=== PATIENT | male | born 1965 | race Caucasian/White ===

== ENCOUNTER → 2017-08-23 10:07 | Outpatient (CLI) | payer BC, SELFPAY ==
--- NOTE | 2017-08-23 | CA_ITS ---
PROCEDURE: 2-D M-mode and color Doppler study INDICATIONS FOR THE TEST: Chest pain COPD Heart Murmur Tobacco Smoking Palpitations Fatigue SyncopeX Edema HypertensionXDiabetes Mellitus Rheumatic Fever SOB NAYLOR Obesity HyperlipidemiaX Family History HDX Additional History CAD,RECENT STENT PATIENT INFORMATION HEIGHT: 69 WEIGHT:176 GENDER: Male B/P:117/73 2-D/M-MODE INTERPRETATION: 2-D MEASUREMENTS OBSERVED VALUES IN CMS Right Ventricular Dimension (RVDd) 2.5 Interventricular Septum (Thickness)(IVsd) .9 Left Ventricular Internal Dimensions(LVIDd) 5.1 Left Ventricular Posterior Wall (Thickness)(LVPWd) 1.0 Aortic Root 3.1 Aortic Cusp Separation 1.6 Left Atrial Dimensions (LAD) 3.0 2D 1. Left atrium is normal size, left ventricle is normal size, there is no concentric left ventricular hypertrophy, visually estimated ejection fraction 55% with no obvious regional wall motion abnormality. 2. The right atrium and right ventricle are relatively normal size and function. 3. The aortic valve is minimally thickened and fibrosed. 4. The mitral and tricuspid valve leaflets are minimally thickened. 5. The pulmonic valve is poorly visualized. 6. No significant pericardial effusion noted. DOPPLER INTERROGATION: Doppler interrogation of the aortic, mitral and tricuspid valvular presence of trace aortic, mild mitral and tricuspid regurgitation, tricuspid regurgitant jet velocity is insufficient for calculation of the right ventricular systolic pressure. Diastolic parameters are inconclusive. CONCLUSION: 1. Normal left ventricular size, preserved left ventricular systolic function, visually estimated ejection fraction 55% with no obvious regional wall motion abnormality. Diastolic parameters are inconclusive. 2. Trace aortic, mild mitral and tricuspid regurgitation 3. No significant pericardial effusion noted.
--- NOTE | 2017-08-23 | CI_ITS ---
Cerebrovascular Exam Indications: 780.4 Dizziness and giddiness. Near syncopal episode. IMPRESSIONS 1. The bilateral vertebral arteries are patent with normal antegrade flow. 2. Incidental Finding:Mixed hypo and hyper echoicdensity seen on left side just proximal to the common carotid artery consistent with thyroid nodule. Multiple images obtained. Suggest dedicated thyroid ultrasound. 3. Study suggests less than 20% stenosis involving the right internal carotid artery and the left internal carotid artery. History: Risk factors: Hypertension. Hyperlipidemia. Carotid duplex study. Complete study and Doppler flow study including spectral analysis, color and dodson scale imaging. Location: Vascular laboratory. Patient status: Outpatient. Tables: Arterial flow: + +--------+--------+ Location V sys V ed + +--------+--------+ Right CCA - proximal 113cm/s 35.4cm/s + +--------+--------+ Right CCA - distal 102cm/s 29.9cm/s + +--------+--------+ Right ECA 86.1cm/s -------- + +--------+--------+ Right ICA - proximal 62.9cm/s 23.9cm/s + +--------+--------+ Right ICA - mid 86.1cm/s 40.9cm/s + +--------+--------+ Right ICA - distal 79.2cm/s 37.1cm/s + +--------+--------+ Right vertebral 45.3cm/s -------- + +--------+--------+ Left CCA - proximal 89.9cm/s 32cm/s + +--------+--------+ Left CCA - distal 86.7cm/s 27cm/s + +--------+--------+ Left ECA 92.4cm/s -------- + +--------+--------+ Left ICA - proximal 72.3cm/s 33.3cm/s + +--------+--------+ Left ICA - mid 89.3cm/s 40.9cm/s + +--------+--------+ Left ICA - distal 86.7cm/s 38.3cm/s + +--------+--------+ Left vertebral 42.7cm/s -------- + +--------+--------+ Velocity ratios: + + + + + + Right, V sys Right, V ed Left, V sys Left, V ed + + + + + + Max ICA/dist CCA 0.84 1.37 1.03 1.51 + + + + + + (Report amended ) Electronically signed by: Adis Moulton [id number]
--- NOTE | 2017-08-23 10:15 | MR_ITS ---
MR head/brain wo/w con HISTORY: Visual field defect, near syncope ITS.REASON: NEAR SYNCOPE,HEMIANOPSIA ORDERING PHYSICIAN: Riana Alvarez MD PATIENT AGE: 51 years COMPARISON: None TECHNIQUE: Standard multiplanar multiecho sequences are performed without and with gadolinium enhancement. FINDINGS: No midline shift or mass effect. No evidence of acute infarction. No hydrocephalus. The cerebellopontine angles, cerebellum and brainstem are unremarkable. No obvious pituitary mass or compression changes upon the optic chiasm. No large aneurysms are evident. Small aneurysms may not be seen with this technique and may be better evaluated with MRA if clinically warranted There is normal dodson-white matter differentiation with no significant white matter disease apparent. No mastoid effusion or sinus air-fluid level. IMPRESSION: Negative MRI of the brain without and with contrast.
== END ==
PROVIDERS: PCP Family Medicine; Visit Provider Family Medicine
DX: R55 Syncope and collapse (principal); H53.47 Heteronymous bilateral field defects
CPT/HCPCS: 70553; 93306; 93880; A9576

== ENCOUNTER → 2017-08-23 13:23 | Outpatient (POV) | payer BC, SELFPAY | PROVIDERS: PCP Family Medicine; Visit Provider Family Medicine | DX: Z00.00 Encounter for general adult medical examination without abnormal findings (principal) ==

== ENCOUNTER → 2017-09-04 15:20 | Outpatient (CLI) | payer BC, SELFPAY ==
--- NOTE | 2017-09-04 15:22 | US_ITS ---
US thyroid HISTORY: ITS.REASON: THYROID NODULE ORDERING PHYSICIAN: Riana Alvarez MD PATIENT AGE: 51 years COMPARISON: None FINDINGS: Right lobe: The right lobe measures 4.4 x 1.7 x 1.9 cm. There is homogeneous echogenicity. No nodule apparent Left lobe: The left lobe measures 3.4 x 1.1 x 1.6 cm. There is a small cyst in the upper pole at 4 mm. No other lesions evident Isthmus: Unremarkable Nodular areas of heterogeneous echogenicity are present in the left neck on are suspicious for enlarged lymph nodes measuring up to 3.6 x 1.7 cm. A chain of enlarged nodes are present in the left neck. There is some increase vascularity of the lymph nodes. No obvious abscess or internal necrosis. IMPRESSION: 1. Extensive left cervical adenopathy. Consider neck and chest CT with contrast for further evaluation to determine the extent of adenopathy and evaluate for possible pulmonary lesion. 2. Small left thyroid cyst and mildly enlarged right lobe of the thyroid gland otherwise negative thyroid ultrasound
== END ==
PROVIDERS: PCP Family Medicine; Visit Provider Family Medicine
DX: E04.1 Nontoxic single thyroid nodule (principal)
CPT/HCPCS: 76536

== ENCOUNTER → 2017-09-19 08:43 | Outpatient (CLI) | payer BC, SELFPAY ==
--- NOTE | 2017-09-19 09:07 | CT_ITS ---
CT sinus wo con CLINICAL INDICATION: ITS.REASON: LYMPHADENOPATHY ORDERING PHYSICIAN: Riana Alvarez MD PATIENT AGE: 51 years COMPARISON: None TECHNIQUE:Axial, sagittal, and coronal images are generated and reviewed without contrast. All CT scans at the facility use one or more dose reduction, viz: automated exposure control; ma/kV adjustment per patient size (including targeted exams where dose is matched to indication; i.e. head); or iterative reconstruction technique. COMPARISON: None FINDINGS: Bones: Unremarkable. No fracture, lytic, or blastic changes evident Extracranial soft tissues: Unremarkable Sinuses: Mild to moderate mucosal thickening involves the frontal ethmoid region. No sinus air-fluid level. There is a 14 mm retention cyst in the floor of the left maxillary sinus. Orbits: Unremarkable Other: No other pertinent findings IMPRESSION: Mild sinus disease in the frontoethmoid region and left maxillary sinus
--- NOTE | 2017-09-19 09:07 | CT_ITS ---
CT chest wo/w con HISTORY: ITS.REASON: LYMPHADENOPATHY ORDERING PHYSICIAN: Riana Alvarez MD PATIENT AGE: 51 years Technique: Axial images obtained without and with contrast. Sagittal and coronal reformatted images are also generated and reviewed. All CT scans at the facility use one or more dose reduction, viz: automated exposure control; ma/kV adjustment per patient size (including targeted exams where dose is matched to indication; i.e. head); or iterative reconstruction technique. CONTRAST: 50 ml Isovue 370 I.V. COMPARISON: None FINDINGS: Left supraclavicular adenopathy is noted past demonstrated in the neck CT. Adenopathy is present in the left paratracheal region superiorly measuring 2.5 x 2 cm extending cephalad to caudad for a length of 5 cm. Trachea is slightly deviated toward the right. No axillary adenopathy. No hilar adenopathy. There are coronary artery calcifications present. Calcified granuloma is present in the left upper lobe. A 4 mm noncalcified nodule present in the left major fissure superiorly benign-appearing probably due to small lymph node Is of the upper abdomen are unremarkable. IMPRESSION: Left supraclavicular and left paratracheal adenopathy. Lymphoma is a consideration. Fine-needle aspiration could be performed under sonographic guidance of the left clavicular adenopathy is clinically desired Coronary artery calcifications consistent coronary artery disease
--- NOTE | 2017-09-19 09:07 | CT_ITS ---
CT soft tissue neck w con CLINICAL INDICATION: Cervical adenopathy ITS.REASON: LYMPHADENOPATHY ORDERING PHYSICIAN: Riana Alvarez MD PATIENT AGE: 51 years COMPARISON: None TECHNIQUE:Axial, sagittal, and coronal images are generated and reviewed with 50 mL's of Isovue-[address] scans at the facility use one or more dose reduction, viz: automated exposure control; ma/kV adjustment per patient size (including targeted exams where dose is matched to indication; i.e. head); or iterative reconstruction technique. FINDINGS: There is adenopathy in the left supraclavicular region and posterior to the sternocleidomastoid inferiorly. The tammi mass in the left supraclavicular region and inferior neck measures 6 x 3 x 3 cm and is causing some compression on the left internal jugular vein. There are some small nodes present more superior to this region as well. There are a few scattered small nodes on the right. IMPRESSION: Left supraclavicular adenopathy as described above
== END ==
PROVIDERS: PCP Family Medicine; Visit Provider Family Medicine
DX: R59.0 Localized enlarged lymph nodes (principal)
CPT/HCPCS: 70486; 70491; 71270; Q9967

== ENCOUNTER → 2017-09-25 17:57 | Outpatient (CLI) | payer BC, SELFPAY ==
[2017-09-25 18:37] LABS: Basophils # 0.1 K/mm3 (0-0.2); Basophils % 0.8 % (0.1-2.0); Eosinophils # 0.6 K/mm3 (0.0-0.4); Eosinophils % 8.8 % (0.1-12.0); Hematocrit 48.3 % (42.0-52.0); Hemoglobin 16.6 g/dL (14.1-18.0); Lymphocytes # 1.7 K/mm3 (0.7-4.5); Lymphocytes % 23.3 K/mm3 (10-50); Mean Corpuscular HGB Conc 34.4 g/dL (31.8-35.4); Mean Corpuscular Hemoglobin 32.2 pg (27.0-31.2); Mean Corpuscular Volume 93.5 fl (80-94); Mean Platelet Volume 7.7 fl (7.4-10.4); Monocytes # 0.4 K/mm3 (0.1-1.0); Monocytes % 5.9 % (1.7-9.3); Neutrophils # 4.5 K/mm3 (1.8-7.8); Neutrophils % 61.3 % (37.0-80.0); Platelet Count 245 K/mm3 (142-424); Red Blood Count 5.17 M/mm3 (4.60-6.20); Red Cell Distribution Width 12.2 % (11.5-17.5); White Blood Count 7.3 K/mm3 (4.8-10.8)
[2017-09-25 19:40] LABS: Alanine Aminotransferase 54 U/L (12-78); Albumin Level 4.2 gm/dL (3.4-5.0); Albumin/Globulin Ratio 1.1 (1.1-1.8); Alkaline Phosphatase 89 U/L (46-116); Anion Gap 11.3 mEq/L (5-15); Aspartate Amino Transferase 36 U/L (15-37); Bilirubin,Total 2.6 mg/dL (0.2-1.0); Blood Urea Nitrogen 14 mg/dL (7-18); Calcium 9.5 mg/dL (8.5-10.1); Carbon Dioxide 30 mmol/L (21.0-32.0); Chloride 105 mmol/L (98-107); Creatinine,Serum 0.82 mg/dL (0.70-1.30); Estimated Glomerular Filt Rate 98 ml/min (>60); GFR (African American) 119 ML/MIN (>60); Globulin 3.7 gm/dl (1.3-3.2); Glucose 97 mg/dL (74-106); Potassium 4.3 mmoL/L (3.5-5.1); Sodium 142 mmol/L (136-145); Thyroid Stimulating Hormone 3.42 uIU/ml (0.358-3.740); Total Protein,Serum 7.9 gm/dL (6.4-8.2)
== END ==
PROVIDERS: PCP Family Medicine; Visit Provider Family Medicine
DX: R59.0 Localized enlarged lymph nodes (principal)
CPT/HCPCS: 36415; 80053; 84443; 85025

== ENCOUNTER → 2017-10-04 09:35 | Outpatient (CLI) | payer BC, SELFPAY ==
--- NOTE | 2017-10-04 09:50 | US_ITS ---
FNA w guidance, US soft tissue head and neck HISTORY: Left supraclavicular adenopathy ITS.REASON: LYMPHADENOPATHY ORDERING PHYSICIAN: Riana Alvarez MD PATIENT AGE: 51 years COMPARISON is made to previous CT scan of 09/19/2017 and ultrasound of 09/04/2017. Prebiopsy ultrasound: Persistent isoechoic masses are present in the supraclavicular region on the left as previously described consistent with adenopathy. The most accessible was tolerated for FNA. TECHNIQUE: Following obtaining informed consent, using aseptic technique and local anesthesia with buffered lidocaine, fine-needle aspiration was performed of the nodule of interest using sonographic guidance. One pass was made into the nodule with a 25-gauge needle followed by 2 passes with a 21-gauge needle. Specimen was put in RPMI on the third pass. Specimen was given to cytology. The patient tolerated the procedure well without evidence of immediate complications and left the ultrasound suite in stable condition. CYTOLOGY:Malignant, consistent with follicular lymphoma IMPRESSION: Successful sonographic guided FNA of the left supraclavicular lymph nodes. Cytology shows malignant cells consistent with follicular lymphoma
== END ==
PROVIDERS: PCP Family Medicine; Visit Provider Family Medicine
DX: R59.0 Localized enlarged lymph nodes (principal)
CPT/HCPCS: 10022; 76536

== ENCOUNTER → 2018-01-25 16:54 | Outpatient (CLI) | payer BC, SELFPAY ==
--- NOTE | 2018-01-25 | XR_ITS ---
XR chest 2V HISTORY: ITS.REASON: CHEST WALL PAIN ORDERING PHYSICIAN: JACOBY Orr PATIENT AGE: 52 years COMPARISON: FINDINGS: The cardiomediastinal silhouette and pulmonary vascularity are within normal limits. The lungs are clear without infiltrates, suspicious nodules, or pleural effusions. No acute bony abnormalities. IMPRESSION: Negative chest, no acute finding
== END ==
PROVIDERS: PCP Family Medicine; Visit Provider Physician Assistant
DX: R07.89 Other chest pain (principal)
CPT/HCPCS: 71046

== ENCOUNTER → 2018-01-31 06:11 | Outpatient (CLI) | payer BC, SELFPAY ==
--- NOTE | 2018-01-31 06:13 | NM_ITS ---
History and Indications: History of angioplasty stenting, hypertension, family history. Procedure: Patient exercised on Osmani protocol 9 minutes and 30 seconds, resting heart rate was 50 bpm resting blood pressure 139/88, with exercise maximum heart rate achieved was 1 46 bpm which is greater than 85% of the maximum predicted heart rate and a blood pressure was 174/92. Test was stopped due to shortness of breath patient denied any complained of chest pain, patient has a good exercise capacity achieved 12.8 metastases of workload on treadmill, the blood pressure response to exercise was adequate. Electrocardiogram: Resting electrocardiogram showed sinus bradycardia, with exercise there is [address] segment depression noted from the baseline EKG. The EKG portion of the exercise Myoview is positive for ischemia. Cardiac stress and resting SPECT images: Cardiac stress and rest SPECT images were obtained using technetium 99 Myoview 31.8 mCi at stress gated 10.1 mCi at rest. Gated SPECT further analysis of segmental wall motion and calculation of the ejection fraction also done. Cardiac stress and resting SPECT images show uniform myocardial activity without any segmental perfusion abnormality, computer derived ejection fraction is 60% with no obvious regional wall motion abnormality, right ventricle is normal size and contractility. Conclusion: 1. The EKG portion of the exercise Myoview is positive for ischemia, patient has good exercise capacity achieved 12.8mets of workload on treadmill, the blood pressure response to exercise was adequate, there was no exercise-induced chest discomfort. 2. No obvious scintigraphic evidence of reversible ischemia seen at this level of exercise, computer derived ejection fraction is percent with no obvious regional wall motion abnormality, right ventricle is normal size and contractility.
--- NOTE | 2018-01-31 07:19 | HMH.ITSHM ---
ZIAC EFFIENT ATORVASTATIN ASA COQ10 FLUTICASONE MENS ONE A DAY OMEGA 3 CEFDINIR STEROID PACK
== END ==
PROVIDERS: PCP Family Medicine; Visit Provider Internal Medicine
DX: I25.10 Atherosclerotic heart disease of native coronary artery without angina pectoris (principal)
CPT/HCPCS: 78452; 93017; A9502

== ENCOUNTER → 2018-03-20 07:56 | Outpatient (CLI) | payer BC, SELFPAY ==
--- NOTE | 2018-03-20 08:30 | US_ITS ---
US abdomen limited History:Elevated bilirubin, elevated LFTs Ordering Physician:Riana Alvarez MD Patient Age: 52 years Comparison:None Findings: Pancreas:Unremarkable. No obvious mass or abnormal fluid collection. No ductal dilatation Liver:No focal liver lesions demonstrated. Homogeneous echogenicity. No intrahepatic biliary ductal dilatation evident. There is appropriate directional blood flow within a nondilated portal vein Right Kidney:Unremarkable. Normal size and echogenicity. No hydronephrosis Gallbladder:No gallstones, gallbladder wall thickening, pericholecystic fluid, or biliary dilatation. Impression:Negative gallbladder/right upper quadrant ultrasound
== END ==
PROVIDERS: PCP Family Medicine; Visit Provider Family Medicine
DX: E80.6 Other disorders of bilirubin metabolism (principal)
CPT/HCPCS: 76705

== ENCOUNTER → 2018-09-10 09:39 | Outpatient (CLI) | payer BC, SELFPAY ==
--- NOTE | 2018-09-10 09:44 | CI_ITS ---
Cerebrovascular Exam Indications: 785.9 Bruit. Hx of radiation to Left neck, lymphoma IMPRESSIONS 1. The bilateral vertebral arteries are patent with normal antegrade flow. 2. Study suggests less than 20% stenosis involving the right internal carotid artery and the left internal carotid artery. Carotid duplex study. Complete study and Doppler flow study including spectral analysis, color and dodson scale imaging. Height: Height: 175.3cm. Height: 69in. Weight: Weight: 77.1kg. Weight: 169.6lb. Body mass index: BMI: 25.1kg/m^2. Body surface area: BSA: 1.95m^2. Location: Vascular laboratory. Patient status: Outpatient. Tables: Arterial flow: + +--------+--------+ Location V sys V ed + +--------+--------+ Right CCA - proximal 101cm/s 30.6cm/s + +--------+--------+ Right CCA - distal 76.2cm/s 29.9cm/s + +--------+--------+ Right ECA 76cm/s -------- + +--------+--------+ Right ICA - proximal 53.7cm/s 29.2cm/s + +--------+--------+ Right ICA - mid 83.5cm/s 42.2cm/s + +--------+--------+ Right ICA - distal 79.6cm/s 44.2cm/s + +--------+--------+ Right vertebral 36.2cm/s -------- + +--------+--------+ Left CCA - proximal 95.4cm/s 33.6cm/s + +--------+--------+ Left CCA - distal 69.5cm/s 30.3cm/s + +--------+--------+ Left ECA 80cm/s -------- + +--------+--------+ Left ICA - proximal 57cm/s 26.7cm/s + +--------+--------+ Left ICA - mid 77cm/s 40.9cm/s + +--------+--------+ Left ICA - distal 71.5cm/s 37.3cm/s + +--------+--------+ Left vertebral 38.6cm/s -------- + +--------+--------+ Velocity ratios: + + + + + + Right, V sys Right, V ed Left, V sys Left, V ed + + + + + + Max ICA/dist CCA 1.1 1.48 1.11 1.35 + + + + + + (Report amended ) Electronically signed by: Darwin Jolly [id number]
[2018-09-10 11:35] LABS: Alanine Aminotransferase 50 U/L (12-78); Albumin Level 3.8 gm/dL (3.4-5.0); Alkaline Phosphatase 76 U/L (46-116); Aspartate Amino Transferase 31 U/L (15-37); Bilirubin,Direct 0.2 mg/dL (0.0-0.2); Bilirubin,Indirect 2.2 mg/dL (0.0-0.9); Bilirubin,Total 2.4 mg/dL (0.2-1.0); Chol/HDL Ratio 2.5 (1-3.5); Cholesterol 87 mg/dL (140-200); HDL Cholesterol 35 mg/dL (27-67); LDL Cholesterol 40 mg/dL (0-130); Triglycerides 59 mg/dL (30-200); VLDL Cholesterol 12 mg/dL (0-40)
== END ==
PROVIDERS: Nurse Practitioner Family; Visit Provider Internal Medicine
DX: I65.23 Occlusion and stenosis of bilateral carotid arteries (principal); C85.90 Non-Hodgkin lymphoma, unspecified, unspecified site; E78.49 Other hyperlipidemia; E80.4 Gilbert syndrome; I10 Essential (primary) hypertension; I25.10 Atherosclerotic heart disease of native coronary artery without angina pectoris; W57.XXXA Bitten or stung by nonvenomous insect and other nonvenomous arthropods, initial encounter; Z92.3 Personal history of irradiation
CPT/HCPCS: 36415; 80061; 80076; 86618; 93880

== ENCOUNTER → 2019-10-17 09:34 | Outpatient (CLI) | payer BC, SELFPAY ==
--- NOTE | 2019-10-17 09:34 | CA_ITS ---
APPROVED REPORT Composing Machine Operator: Mimi Gannon Sylvie Laterality: Bilateral Study Quality: Excellent Indications: Carotid stenosis Risk Factors Hypertension: Hx of lymphoma with radiation to left neck Doppler Spectral Velocity Analysis ECA (R) 78.70/15.30 cm/s ECA (L) 77.70/17.00 cm/s dICA (R) 76.50/37.10 cm/s dICA (L) 70.00/33.90 cm/s Alicia (R) 72.10/32.20 cm/s Alicia (L) 57.90/29.40 cm/s pICA (R) 68.40/31.20 cm/s pICA (L) 51.80/27.20 cm/s dCCA (R) 71.90/25.70 cm/s dCCA (L) 52.70/17.70 cm/s pCCA (R) 85.40/27.00 cm/s pCCA (L) 73.60/23.20 cm/s Vert (R) 28.40/8.40 cm/s Vert (L) 27.70/10.70 cm/s ICA/CCA 1.06 ICA/CCA 1.33 Conclusion Study suggests less than 20% stenosis of the bilateral internal cartoid arteries, unchanged from the 09/10/18 study. Antegrade flow seen bilateral vertebral arteries. Electronically signed by : Adis Moulton MD 10/17/2019 17:36:15
== END ==
PROVIDERS: PCP Family Medicine; Visit Provider Urology
DX: I65.23 Occlusion and stenosis of bilateral carotid arteries (principal); E78.2 Mixed hyperlipidemia; I10 Essential (primary) hypertension; I25.10 Atherosclerotic heart disease of native coronary artery without angina pectoris
CPT/HCPCS: 93880

== ENCOUNTER 2024-08-08 07:57 | Day surgery (SDC) | payer BC, SELFPAY ==
[2024-08-08 08:14] VITALS: BMI 25.2
[2024-08-08] MEDS: LACTATED RINGERS 1000ML 1,000 ML 50 ML IV (08:16)
[2024-08-08 08:28] VITALS: BP 136/77; PULSE 55; RESP 18; TEMP 36.3; O2SAT 100
--- NOTE | 2024-08-08 09:00 | P.HP_ITS ---
History of Present Illness *Admission Date: 08/08/24 *Reason for visit:: Screening for colon cancer *History of present illness: Mr. Santiago is a 58-year-old gentleman who is here for screening colonoscopy. His last colonoscopy was more than 10 years ago. The examination is deemed medicall y necessary for screening colonoscopy. The patient has been seen, interviewed and examined prior to the procedure by both myself and the anesthesia provider. [facility] Disclaimer: The information contained in this section may have been updated after the patient was seen, as this information can be updated by other users. Medical History (Updated 08/08/24 @ 09:10 by Durga Kelsey II, MD) Lymphoma Carotid artery stenosis Hypertensive disorder Hyperlipidemia Coronary arteriosclerosis Surgical History (Updated 08/08/24 @ 08:26 by Yinka Damian RN) History of thumb surgery History of coronary artery stent placement Family History (Updated 08/08/24 @ 08:27 by Yinka Damian RN) Other Family history of heart disease Family history of hypertension Social History (Updated 08/08/24 @ 08:28 by Yinka Damian RN) Smoking Status: Never smoker alcohol intake: never counseling provided: none substance use type: denies use current occupational status: employed Travel in the last 8 weeks: Inside the [place] household members: spouse housing: condominium Have you lived/traveled outside [place] in past 30 days?: No Contact w/someone who lives/traveled outside US past 30 days?: No Exposure to someone with infectious disease in past 14 days?: No Do you have a fever (greater than 100.4 F or 38 C)?: No Have you tested positive for COVID-19: Yes Exposed to someone with COVID-19 in past 14 days?: No Do you have a sore throat?: No Do you have a cough?: No Do you have any weakness?: No Are you experiencing any nausea/vomitting?: No Do you have any diarrhea?: No Are you experiencing any unusual bleeding?: No Do you have any muscle aches/pain?: No Do you have any abdominal pain?: No Are you experiencing loss of taste or smell?: No Other Medical History Have you received the Flu Vaccine for this season: Yes Have you received the Pneumonia Vaccine: No Review of Systems Review of Systems Review of systems (narrative): Negative *Cardiovascular Comments: Negative *Gastrointestinal Comments: Negative *Genitourinary Comments: Negative *Musculoskeletal Comments: Negative *Neurologic Comments: Negative Meds Home Medications and Allergies Home Medications ?Medication ?Instructions ?Recorded ?Confirmed ?Type aspirin 81 mg tablet,delayed 81 mg PO QDAY heart health 06/16/17 08/08/24 History release (Adult Low Dose Aspirin) coenzyme Q10 100 mg capsule (Co 100 mg PO QDAY Supplement 06/16/17 08/08/24 History Q-10) multivitamin 1 tab PO QDAY Supplement 06/16/17 08/08/24 History omega-3 fatty acids 1,000 mg 1,000 mg PO TID Supplement 06/16/17 08/08/24 History capsule cetirizine 10 mg tablet (Zyrtec) 10 mg PO DAILY 02/18/19 08/08/24 History atorvastatin 40 mg tablet 40 mg PO QDAY HLD #30 tabs 10/21/19 08/08/24 Rx bisoprolol 2.5 See Rx Instructions .Route 05/09/22 08/08/24 Rx mg-hydrochlorothiazide 6.25 mg .COMPLEX #90 tabs tablet New Prescriptions to Start Prescriptions: Allergies Allergy/AdvReac Type Severity Reaction Status Date / Time pantoprazole Allergy Mild Other Verified 08/08/24 08:21 Exam Data for Last 24 hours Vital signs and Labs for Last 24 Hours: Temp Pulse Resp BP Pulse Ox O2 Del Method 97.3 F L 55 L 18 136/77 100 Room Air 08/08/24 08:28 08/08/24 08:28 08/08/24 08:28 08/08/24 08:28 08/08/24 08:28 08/08/24 08:28 I & O for Last 24 hours: Intake & Output 08/05/24 08/06/24 08/07/24 08/08/24 23:59 23:59 23:59 23:59 Weight 171 lb *Routine HEENT Exam Head: Present normocephalic Eye: Present EOMI and PERRL ENT: Present mucous membranes moist *Routine Neck Exam Neck: Present supple *Routine Respiratory Exam Respiratory: Present CTA bilaterally *Routine Cardiovascular Exam Cardiovascular: Present RRR *Routine Abdominal Exam Abdominal: Present soft and normoactive bowel sounds; Absent tenderness *Routine Rectal Exam Rectal:: deferred *Routine Genitalia Exam Genitalia:: deferred *Routine Extremities Exam Extremities: Absent cyanosis, clubbing or edema *Routine Skin Exam Skin: Present warm; Absent rash *Routine Neurological Exam Neurological: Present alert and oriented X3 Assessment and Plan *Assessment and plan (1) Screening for colon cancer: Status: Acute Category: Medical Code(s): Z12.11 - Encounter for screening for malignant neoplasm of colon Plan A/P: 1. Screening for colon cancer is the preprocedural diagnosis. The patient will be anesthetized/sedated using MAC sedation. The patient has been seen and examined. Cardiac and lung assessment prior to the examination is stable. Proceed with planned screening colonoscopy
--- NOTE | 2024-08-08 09:00 | EXP.ANES.CKL ---
[facility] Disclaimer: The information contained in this section may have been updated after the patient was seen, as this information can be updated by other users. Medical History (Updated 08/08/24 @ 08:25 by Yinka Damian RN) Lymphoma Carotid artery stenosis Hypertensive disorder Hyperlipidemia Coronary arteriosclerosis Surgical History (Updated 08/08/24 @ 08:26 by Yinka Damian RN) History of thumb surgery History of coronary artery stent placement Family History (Updated 08/08/24 @ 08:27 by Yinka Damian RN) Other Family history of heart disease Family history of hypertension Social History (Updated 08/08/24 @ 08:28 by Yinka Damian RN) Smoking Status: Never smoker alcohol intake: never counseling provided: none substance use type: denies use current occupational status: employed Travel in the last 8 weeks: Inside the [place] household members: [facility] Have you lived/traveled outside US in past 30 days?: No Contact w/someone who lives/traveled outside [place] past 30 days?: No Exposure to someone with infectious disease in past 14 days?: No Do you have a fever (greater than 100.4 F or 38 C)?: No Have you tested positive for COVID-19: Yes Exposed to someone with COVID-19 in past 14 days?: No Do you have a sore throat?: No Do you have a cough?: No Do you have any weakness?: No Are you experiencing any nausea/vomitting?: No Do you have any diarrhea?: No Are you experiencing any unusual bleeding?: No Do you have any muscle aches/pain?: No Do you have any abdominal pain?: No Are you experiencing loss of taste or smell?: No [facility] Anesthesia Checklist Patient Identification Patient Identification: Verbal (Name & ) Structural Data Admitted From: Home Planned Operative Procedure/s: colonoscopy Consent for Planned Operative Procedure(s) Verified: Yes NPO Status Verified Time NPO: 00:00 Airway Assessment Mallampati Score:: Class II C-Spine Mobility Assessed: Yes TMJ Mobility Assessed: Yes Dentition: Good Dentition Neurological Assessment Level of Consciousness: Awake, Alert and Appropriate Anesthesia Plan Anesthesia Risk discussed: Yes Anesthesia Plan: Verified ASA Class: III Anesthesia Type: MAC
[2024-08-08 09:02] VITALS: O2SAT 100
--- NOTE | 2024-08-08 09:10 | [facility].PROCNOTE ---
[facility] Procedure Note Date: 08/08/24 Time: 09: Procedure Note:: Colonoscopy Procedure Report: Colonoscopy with cold snare polypectomy Endoscopist: Durga Kelsey II, MD Referring physician: Sandoval Alvarez MD Date of Procedure: August 08, 2024 Equipment: Olympus 190 variable stiffness pediatric colonoscope Sedation: MAC sedation Indication: Mr. Santiago is a 58-year-old gentleman who is here for screening colonoscopy. His last colonoscopy was in his 40s (with me). He reports no abdominal pain, weight loss, change in his bowel habits or rectal bleeding. He reports no family history of colon cancer. Procedure: Prior to the procedure, a history and physical exam was performed, and patient's medications and allergies were reviewed. The risks, benefits and alternatives of the sedation and procedure were discussed with the patient. All questions were answered and informed consent was obtained. The patient was brought to the procedure room. Patient identification and proposed procedure were verified by the physician and the nurse. The patient was placed in a left lateral decubitus position and the scope was passed under direct vision. Throughout the procedure, the patient's blood pressure, pulse, and oxygen saturations were monitored continuously. The colonoscopy was accomplished without difficulty. The patient tolerated the procedure well. Findings: On digital rectal examination there was normal rectal tone. There were no external hemorrhoids. The prostate was 2+, smooth, soft, symmetric without nodules. The colonoscope was introduced through the anal canal to the rectum and advanced to the cecum. The ileocecal valve and appendiceal orifice were identified. The scope was advanced a short distance into the ileum which appeared grossly normal. The scope was then withdrawn into the colon. There were 4 diminutive polyps (cecum x 2 (2 and 4 mm), ascending x 1 (3 mm) and sigmoid x 1 (3 mm)). These were all removed via cold snare polypectomy. The remaining cecum, ascending and transverse colon and mucosa were grossly normal. There were a few mildly scattered diverticuli throughout within the sigmoid colon (LEFT colon). The rectum itself was normal. Upon retroflexion within the rectum there were grade 2 internal hemorrhoids. The preparation was excellent throughout with [place] Preparation Score of 9. The cecal time was 12 minutes. Impression: 1. Diminutive colonic polyps x 4 2. Mild sigmoid diverticulosis 3. Grade 2 internal hemorrhoids Plan: I will follow-up the polyp histology and recommend repeat surveillance colonoscopy again in 5 years based upon the pathology. I would encourage bulking psyllium fiber supplementation (Konsyl) on a maintenance basis.
[2024-08-08 09:31] VITALS: BP 95/62; PULSE 61; RESP 15; O2SAT 98
[2024-08-08 09:41] VITALS: BP 96/55; PULSE 60; RESP 16; O2SAT 97
[2024-08-08 09:51] VITALS: BP 101/56; PULSE 55; RESP 16; O2SAT 99
[2024-08-08 10:01] VITALS: BP 109/69; PULSE 54; RESP 17; O2SAT 99
[2024-08-08 10:07] LABS: Basophils % 0.5 % (0.1-2.0); Eosinophils # 0.3 K/mm3 (0.0-0.4); Eosinophils % 4.5 % (0.1-12.0); Hematocrit 42.1 % (42.0-52.0); Lymphocytes # 0.6 K/mm3 (0.7-4.5); Mean Corpuscular HGB Conc 35.6 g/dL (31.8-35.4); Mean Corpuscular Volume 92.7 fl (80-94); Mean Platelet Volume 9.8 fl (7.4-10.4); Monocytes # 0.5 K/mm3 (0.1-1.0); Monocytes % 7.6 % (1.7-9.3); Neutrophils # 4.8 K/mm3 (1.8-7.8); Neutrophils % 77.1 % (37.0-80.0); Platelet Count 166 K/mm3 (142-424); Red Blood Count 4.54 M/mm3 (4.60-6.20); Red Cell Distribution Width 11.5 % (11.5-17.5); White Blood Count 6.2 K/mm3 (4.8-10.8)
[2024-08-08 10:15] LABS: Alanine Aminotransferase 45 U/L (12-78); Albumin Level 4.2 g/dl (3.5-5.0); Albumin/Globulin Ratio 1.6 (1.1-1.8); Alkaline Phosphatase 75 U/L (38-126); Anion Gap 9.4 mEq/L (5-15); Aspartate Amino Transferase 47 U/L (17-59); Bilirubin,Total 5.1 mg/dl (0.2-1.3); Blood Urea Nitrogen 16 mg/dl (9-20); Calcium 9.4 mg/dl (8.4-10.2); Carbon Dioxide 29 mmol/L (22.0-30.0); Chloride 103 mmol/L (98-107); Creatinine Clearance Estimated 108 mL/min (50-200); Estimated Glomerular Filt Rate 99 ml/min (>60); GFR (African American) 119 ML/MIN (>60); Globulin 2.6 g/dL (1.3-3.2); Glucose 85 mg/dl (74-100); Potassium 4.4 mmoL/L (3.5-5.1); Sodium 137 mmol/L (136-145); Total Protein,Serum 6.8 g/dl (6.3-8.2)
== END 2024-08-08 10:10 | disposition home or self-care (01) ==
PROVIDERS: PCP Family Medicine; Visit Provider Internal Medicine Gastroenterology
PROC: 0DJD8ZZ Inspection of Lower Intestinal Tract, Via Natural or Artificial Opening Endoscopic (ICD-10-PCS; CPT 45378; principal; 2024-08-08 09:30)
DX: K63.5 Polyp of colon (principal); K57.30 Diverticulosis of large intestine without perforation or abscess without bleeding; K64.1 Second degree hemorrhoids; Z12.11 Encounter for screening for malignant neoplasm of colon
CPT/HCPCS: 45385; 36415; 80053; 85025; J7120